=== PATIENT | female | born 1990 | race Caucasian/White ===

== ENCOUNTER 2021-06-03 14:01 | Emergency (ER) | payer BC ==
[~2021-06-03] VITALS: Ht 167.6 cm; Wt 68.9 kg
[2021-06-03 18:39] VITALS: BP 136/95
[2021-06-03] MEDS ORDERED: ONDA4TAB12 PO (19:37)
[2021-06-03] MEDS ORDERED: HYDR50TA PO (19:37)
--- NOTE | 2021-06-03 19:37 | PHYS DOC ---
Past Medical History Past Surgical History: Tonsillectomy Smoking Status: Current Every Day Smoker Additional Information: 1 ppd Alcohol Use: Rarely Social History Narrative: sober x 6 years General Adult EDM: Chief Complaint: NAUSEA/VOMITING/DIARRHEA HPI: HPI: Patient is a 31 year old female with a history of heroin use who presents today complaining of nausea and vomiting as well as her bone spotting after stopping Suboxone. Patient states she has been on Suboxone for 6 years and stopped on Thursday this week. She states since then she has nausea, vomiting, her bones are hurting and she cannot sleep. She states she does not want to be on Suboxone anymore. Review of Systems: Review of Systems: Constitutional: Reports insomnia. Reports bones hurting. Denies fever or chills. [] Eyes: Denies change in visual acuity. [] HENT: Denies nasal congestion or sore throat. [] Respiratory: Denies cough or shortness of breath. [] Cardiovascular: Denies chest pain or edema. [] GI: Reports nausea and vomiting. Denies abdominal pain, bloody stools or diarrhea. [] : Denies dysuria. [] Musculoskeletal: Denies back pain or joint pain. [] Integument: Denies rash. [] Neurologic: Denies headache, focal weakness or sensory changes. [] Psychiatric: Denies depression or anxiety. [] Heart Score: C/O Chest Pain: N/A Risk Factors: Risk Factors: DM, Current or recent (<one month) smoker, HTN, HLP, family history of CAD, obesity. Risk Scores: Score 0 - 3: 2.5% MACE over next 6 weeks - Discharge Home Score 4 - 6: 20.3% MACE over next 6 weeks - Admit for Clinical Observation Score 7 - 10: 72.7% MACE over next 6 weeks - Early Invasive Strategies Allergies: Allergies: Allergies Coded Allergies Type Severity Reaction Last Updated Verified shellfish derived Allergy Severe ANGIOEDEMA 06/03/21 Yes Sulfa (Sulfonamide Antibiotics) Allergy Intermediate SORES/BLISTERS 06/03/21 Yes Physical Exam: PE: Constitutional: Well developed, well nourished, no acute distress, non-toxic appearance. [] HENT: Normocephalic, atraumatic, bilateral external ears normal, oropharynx moist, no oral exudates, nose normal. [] Eyes: PERRLA, EOMI, conjunctiva normal, no discharge. [] Neck: Normal range of motion, no tenderness, supple, no stridor. [] Cardiovascular:Heart rate regular rhythm, no murmur [] Lungs & Thorax: Bilateral breath sounds clear to auscultation [] Abdomen: Bowel sounds normal, soft, no tenderness, no masses, no pulsatile masses. [] Skin: Warm, dry, no erythema, no rash. [] Back: No tenderness, no CVA tenderness. [] Extremities: No tenderness, no cyanosis, no clubbing, ROM intact, no edema. [] Neurologic: Alert and oriented X 3, normal motor function, normal sensory f unction, no focal deficits noted. [] Psychologic: Affect normal, judgement normal, mood normal. [] Current Patient Data: Vital Signs: Vital Signs Date Time Temp Pulse Resp B/P (MAP) Pulse Ox O2 Delivery O2 Flow Rate FiO2 06/03/21 18:39 98.9 95 20 136/95 100 Room Air 98.9 EKG: EKG: [] Radiology/Procedures: Radiology/Procedures: [] Course & Med Decision Making: Course & Med Decision Making Pertinent Labs and Imaging studies reviewed. (See chart for details) This is a 31-year-old female patient presented to the ED today complaining of insomnia, nausea and vomiting and her bone starting, symptoms began on Thursday this week after stopping Suboxone which she was taking for heroin addiction. Discussed with patient about alternatives. Recommended hydroxyzine and Zofran. Informed patient most of the sleep aid prescription medicines were injected and considering her history of addiction I would prefer not to write these prescriptions for her. Recommended she follows up with [facility] as well as her primary care doctor. Chris Disclaimer: Chris Disclaimer: This electronic medical record was generated, in whole or in part, using a voice recognition dictation system. Departure Departure Impression: Primary Impression: Insomnia Qualified Codes: G47.00 - Insomnia, unspecified Additional Impression: Nausea and vomiting Qualified Codes: R11.2 - Nausea with vomiting, unspecified Disposition: HOME / SELF CARE / HOMELESS Condition: STABLE Referrals: NO PCP (PCP) follow up with primary care doctor from the list provided as well as [facility] Patient Instructions: Insomnia-Brief, Nausea and Vomiting, [id number] Additional Instructions: You were evaluated in the emergency room with symptoms consistent of withdrawals. Please take the prescribed medications as ordered, consider following up with [facility] as well as a primary care doctor for long-term follow-up especially if you need a sleep aid prescription medicine. Most of these medicines are addicting and not safe to be given in the emergency room Scripts Ondansetron (ONDANSETRON ODT) 4 Mg Tab.rapdis 1 TAB PO PRN Q6-8HRS, #16 TAB Prov: IDA DUNCAN APRN 06/03/21 Hydroxyzine Hcl (HYDROXYZINE HCL) 50 Mg Tablet 50 MG PO TID, #30 TAB Prov: IDA DUNCAN APRN 06/03/21 IDA DUNCAN APRN Jun 03, 2021 19:37
== END 2021-06-03 20:00 | disposition home or self-care (01) ==
LOC: ER 14:01
DX: G47.00 Insomnia, unspecified (principal); R11.2 Nausea with vomiting, unspecified; F17.200 Nicotine dependence, unspecified, uncomplicated; Z88.2 Allergy status to sulfonamides; Z91.013 Allergy to seafood
CPT/HCPCS: 99283